=== PATIENT | female | born 1980 | race Two or more races ===

== ENCOUNTER 2024-06-27 15:05 | Outpatient (AMB) | payer OTHER, SELFPAY ==
--- NOTE | 2024-06-27 15:15 | A.OFFVIS_ITS ---
Vital Signs 06/27/24 15:27 Height 5 ft 5 in Weight 194 lb BMI 32.3 BP 120/70 Blood Pressure Location Lt brachial Position Sitting Pulse 71 Pulse Source Pulse Oximeter Pulse Oximetry (%) 99 Oxygen Delivery Method Room Air Intake Visit Reasons: Joint Pain Intake Note: Patient externally referred by PCP for joint pain. She states all over her body, and it's been going on for 2 years, past few months, been at it's worse. She states she takes 650 mgs of Tylenol arthritis which is not helping at all. Allergies amoxicillin [AMOXICILLIN] Allergy (Unknown, Unverified 06/27/24 15:20) HIVE ibuprofen [From MOTRIN] Adverse Reaction (Unknown, Unverified 06/27/24 15:20) VOMITING tramadol [TRAMADOL] Adverse Reaction (Unknown, Unverified 06/27/24 15:20) NAUSEA & VOMITING & PALPITATIONS Medication List - Last Reconciled 06/27/24 by Di Panchal MD acetaminophen ER 650 mg PO TID albuterol sulfate 90 mcg/actuation (Ventolin HFA) inhalation celecoxib mg PO clonidine HCl 0.1 mg PO TID diclofenac sodium 1% topical fluticasone propionate 110 mcg/actuation inhalation hydroxyzine HCl 25 mg PO TID lactulose 30 grams PO BID lisinopril 10 mg PO DAILY olanzapine 15 mg PO BEDTIME ondansetron HCl mg PO oxybutynin chloride ER 5 mg PO DAILY pantoprazole 20 mg PO BID polyethylene glycol 3350 17 grams PO DAILY triamcinolone acetonide sprays intranasal zafirlukast (Accolate) 20 mg PO BID HPI Comments Details: Patient externally referred by PCP for joint pain. She states all over her body, and it's been going on for 2 years, past few months, been at it's worse. She states she takes 650 mgs of Tylenol arthritis which is not helping at all. She was also referred to see a material flow analyst. She had spine x-rays which showed mild degenerative disc disease. She was referred to PT. She has done PT and she did not find it useful. 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 Female Reproductive History Menstrual Total pregnancies: 8 Number of Living Children: 6 Review of Systems Const Reports weakness ENT Reports neck pain Musc Reports back pain, Reports myalgias, Reports arthralgias and Reports neck pain Neuro Reports weakness Physical Exam Vital Signs: Last Vital Signs Pulse 71 06/27/24 15:27 BP 120/70 06/27/24 15:27 Pulse Ox 99 06/27/24 15:27 Oxygen Delivery Method Room Air 06/27/24 15:27 BMI result Body Mass Index 32.3 Const General: cooperative, healthy appearing and comfortable Nutritional Appearance: obese Orientation/consciousness: patient oriented x3 Limitations: no limitations HEENT Head: Yes normocephalic and Yes atraumatic Resp Effort & Inspection: normal respiratory effort and able to speak in complete sentences Skin General skin exam: no rashes or lesions noted Neuro General: patient oriented x3 Extrem Other: No active synovitis Normal nailfold capillaroscopy Multiple fibromyalgia tender points Results Reviewed Results Reviewed: JAZ screen negative Assessment & Plan Assessment & Plan (1) Fibromyalgia, primary: Code(s): M79.7 - Fibromyalgia Category: Medical Plan: This is a 44-year-old female presents for evaluation of diffuse pain. Upon evaluation I do not see any signs suggestive of an autoimmune rheumatic disease Discussed management of fibromyalgia with patient. Is a noninflammatory, non- autoimmune central afferent processing disorder leading to a diffuse pain syndrome. Patient follows up regularly with her psychiatrist and psychotherapist. Try to follow sleep hygiene practices. Discuss CBT for sleep with psychotherapist. Patient is scheduled for a sleep study. Advised patient to not missed that appointment. Patient would benefit from increased physical activity, either through formal physical therapy or by joining a gym. Advised patient that she should start activity slowly and increase as tolerated. Patient walks for 45 minutes daily. Consider low-impact exercises such as swimming, aqua therapy stretching, yoga. Follow-up with PCP Plan I spent 30 minutes reviewing patient's chart, evaluating patient, counseling patient and documenting in the chart Coding Level of Care Code New Pt Level 3 (93875) Diagnoses Fibromyalgia, primary M79.7
[2024-06-27 15:27] VITALS: BP 120/70; PULSE 71; O2SAT 99; BMI 32.3
== END 2024-06-27 15:52 | disposition home or self-care (01) ==
PROVIDERS: PCP Internal Medicine; Referring Provider Internal Medicine; Visit Provider Student in an Organized Health Care Education/Training Program
DX: M79.7 Fibromyalgia (principal)
CPT/HCPCS: 99203

== ENCOUNTER → 2024-06-27 15:05 | Outpatient (BNVA) | payer OTHER, SELFPAY | PROVIDERS: PCP Internal Medicine; Referring Provider Internal Medicine; Visit Provider Student in an Organized Health Care Education/Training Program | DX: M79.7 Fibromyalgia (principal) | CPT/HCPCS: 99202 ==

== ENCOUNTER 2025-07-01 15:38 | Outpatient (REF) | payer OTHER, SELFPAY ==
[2025-07-01 17:39] LABS: Hematocrit 31.9 % (37.0-47.0); Hemoglobin 10.0 g/dl (12.0-16.0); Mean Corpuscular HGB Conc 31.3 g/dl (31.0-35.0); Mean Corpuscular Hemoglobin 24.2 pg (27.0-33.0); Mean Corpuscular Volume 77.1 fL (80.0-98.0); NRBC Abs Auto 0.000 X10*3/uL (0.0-0.012); NRBC Pct Auto 0.0 /100WBC (0.0-0.2); Platelet Count 204 X10*3/uL (160-400); Red Blood Count 4.14 X10*6/uL (4.20-5.50); White Blood Count 4.1 X10*3/uL (4.8-10.8)
[2025-07-02 05:23] LABS: Follicle Stimulating Hormone 10.6 mIU/mL
== END 2025-07-01 15:39 | disposition home or self-care (01) ==
LOC: HO.LAB 15:38
PROVIDERS: PCP Internal Medicine; Visit Provider Obstetrics & Gynecology
DX: N93.9 Abnormal uterine and vaginal bleeding, unspecified (principal); Z20.2 Contact with and (suspected) exposure to infections with a predominantly sexual mode of transmission; Z32.00 Encounter for pregnancy test, result unknown; Z98.51 Tubal ligation status
CPT/HCPCS: 36415; 83001; 83002; 84443; 84702; 85027; 99202

== ENCOUNTER 2025-07-01 15:38 | Outpatient (AMB) | payer OTHER, SELFPAY ==
--- OUTSIDE RECORDS SUMMARY | 2024-07-22 08:16 | XMS_ITS | Encounter Summary ---
Author Organization [facility] Address [address] [place] [address] Care Team Providers Care Secretary Name Role Phone Yeni Daniel MD Primary Care Provider [phone] Encounter Details Date Type Department Care Team (Late Contact Info) Description 07/22/2024 8:16 AM EDT Hospital Encounter TH HISTORIC ENCOUNTERS [facility] ONLY Yeni Daniel MD [address] [place] [address] Gastro-esophageal reflux disease without esophagitis Social History [...] Department Care Team (Late Contact Info) Description 07/08/2025 1:30 PM EDT Ancillary Procedure [facility] - [address] [place] [address] 08/06/2025 1:00 PM EDT Office Visit Urogynecology - [place] [address] [place] [address] Roxy Colon MD [address] [place] [address] [address] [place] [address] 08/28/2025 4:00 PM EST Office Visit Adult Medicine [facility] [address] [place] [address] Carrie Badillo PA [address] [place], [place] 09/18/2025 9:00 AM EST Consult Vascular Surgery - [place] 300 [facility] 210 [place] [address] Negrita Boone PA 300 [facility] 210 [place] [address] 09/19/2025 9:40 AM EST Office Visit Gastroenterology [facility] [address] [facility] 200 [place] [phone] Merry Inman NP [address] [facility] 200 [place] [address] documented as of this encounter Goals Goal Patient Goal Type Associated Problems Recent Progress Patient-Stated? 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 COMPARISON: 2 view chest x-ray March 02, 2014 HISTORY: Patient is a 44-year-old female with history of dysphagia, globus sensation. Medical Technologist radiographs: 1 view chest radiograph demonstrates cardiac [...] Signed by: JEANETTE BERGER MD Dic Date/Time: 07/22/24848 Sign date/Time: 07/22/24917 Procedure Note Jeanette Berger MD - 08/06/2024 [facility] Diagnostic Imaging Department [address] [place] [address] Patient: NABEEL HASTINGS /Age/Sex: 1980 - 44 - F Unit#: [id number] Location/Status: [facility]/REG CLI Mnemonic/Ordering Site: [facility] Ordering Physician: YENI DANIEL MD CR Barium Swallow - 07/22/24 - Report Status:Signed FINDINGS: Double contrast esophagram performed. COMPARISON: 2 view chest x-ray March 02, 2014 HISTORY: Patient is a 44-year-old female with history of dysphagia,globus sensation. Medical Technologist radiographs: 1 view chest radiograph demonstrates cardiac [...] Signed by: JEANETTE BERGER MD Dic Date/Time: 07/22/24 0849 Sign date/Time: 07/22/24917 Yeni Daniel MD IMG XR PROCEDURES Final Res ult documented in this encounter Visit Diagnoses Diagnosis Gastro-esophageal reflux disease without esophagitis documented in this encounter Care Teams Secretary Relationship Specialty Start Date End Date Yeni Daniel MD 4 [facility] [place] [address] PCP - General 06/29/23 documented as of this encounter
--- NOTE | 2025-07-01 15:46 | A.OFFVIS_ITS ---
Vital Signs 07/01/25 15:51 Height 5 ft 5 in Weight 193 lb BMI 32.1 BP 120/82 Intake Visit Reasons: New patient/AUB Financial Services Technician Required: No Information Interpreted: non-clinical & clinical Wheel Cleaner: Wheel Cleaner Present (Katya MOORE) Accompanied by: Self / Same As Patient Allergies amoxicillin (AMOXICILLIN) Allergy (Unknown, Unverified 06/27/24 15:20) HIVE ibuprofen (From MOTRIN) Adverse Reaction (Unknown, Unverified 06/27/24 15:20) VOMITING tramadol (TRAMADOL) Adverse Reaction (Unknown, Unverified 06/27/24 15:20) NAUSEA & VOMITING & PALPITATIONS Is last menstrual period known: Yes Last menstrual period: 06/27/25 HPI Comments Details: The patient is presenting c/o irregular bleeding associated with passage of blood clots and abdominal cramping. it started few months ago and is getting worse no other associated symptoms. Last co testing Last mammogram PFSH Medical History Chronic back pain Narcotic abuse Panic attack Hidradenitis suppurativa Anxiety and depression Asthma Obesity Osteoarthritis of lumbar spine Surgical History Hx of tubal ligation Family History Mother Hypertension Breast cancer in female Father HIV (human immunodeficiency virus infection) Maternal Grandfather Liver cancer Social History Household Members: Spouse Housing: Apartment Alcohol intake: never Patient Tobacco Use Status: Current everyday Tobacco user Tobacco use type: Cigarette Cigarette Packs Per Day: 0.25 Cigarettes Per Day: 8 Years Smoked: 30 Current occupational status: unemployed 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 Sexually active: Yes Sexual orientation: Straight/Heterosexual Gender identity: Female Female Reproductive History Menstrual Date of last menstrual period: 06/27/25 control method: permanent sterilization Total pregnancies: 10 Full term: 6 Number of Living Children: 6 Ab induced: 2 Ab spontaneous: 2 Review of Systems Const All systems reviewed & are unremarkable except as noted in HPI and below Card Reports as per HPI Resp Reports as per HPI GI Reports as per HPI and Reports no additional complaints Reports as per HPI Physical Exam Vital Signs: BMI result Body Mass Index 32.1 Const General: cooperative, healthy appearing and comfortable Chest Chest palpation & inspection: normal inspection of the chest and normal palpation of entire chest wall Breast/axilla inspection: normal inspection of the breasts and normal inspection of the axillae Breast/axilla palpation: normal palpation of the breasts, normal palpation of the axillae and no axillary lymphadenopathy Resp Effort & Inspection: normal respiratory effort Auscultation: clear to auscultation bilaterally Percussion: percussion normal Cardio Palpation: normal PMI Rate: regular rate Rhythm: regular rhythm Heart sounds: no murmurs and no rubs Peripheral pulses: Peripheral pulses 2+ throughout GI Inspection: Yes normal to inspection Palpation (GI): Soft to palpation, nontender, no guarding, not rigid and No hepatosplenomegaly present Percussion: Yes normal to percussion Auscultation: normal bowel sounds Rectal Exam - Female: deferred General: Yes bladder normal to palpation External Female Exam: No lesion Speculum Exam - Vagina: normal appearance of the vagina, normal palpation, normal vaginal discharge and not erythematous Speculum Exam - Cervix: normal appearance of the cervix and normal palpation Bimanual exam- vagina & uterus: normal bimanual exam, normal palpation, uterine size normal, bladder normal to palpation, consistency normal and normal palpation Bimanual Exam- Adnexa, other: normal adnexae, no masses and no tenderness Assessment & Plan Assessment & Plan (1) Abnormal uterine bleeding (AUB): Code(s): N93.9 - Abnormal uterine and vaginal bleeding, unspecified Category: Medical Plan: Screening mammogram , Co testing done, GC and chlamydia taken CBC, TSH, HCG, and pelvic ultrasound ordered. Discussed with the patient the different causes of abnormal bleeding including thyroid disorders, uterine and ovarian pathology, endometrial hyperplasia, carcinoma and other potential causes. Discussed with the patient the work up including CBC (to r/o anemia), TSH, pelvic Ultrasound, endometrial biopsy to r/o endometrial pathology. All questions answered and the patient verbalized understanding. Instructed the patient to schedule an appointment for an endometrial biopsy in 2 weeks. Orders: Orders Complete Blood Count no Diff Today N93.9 - Abnormal uterine and vaginal bleeding, unspecified HCG Quantitative Today N93.9 - Abnormal uterine and vaginal bleeding, unspecified Follicle Stimulating Hormone Today N93.9 - Abnormal uterine and vaginal bleeding, unspecified MM screening mammo BI Today Z12.31 - Encounter for screening mammogram for malignant neoplasm of breast US pelvic and transvaginal Today N93.9 - Abnormal uterine and vaginal bleeding, unspecified TSH reflex Free T4 Today N93.9 - Abnormal uterine and vaginal bleeding, unspecified Lutenizing Hormone Today N93.9 - Abnormal uterine and vaginal bleeding, unspecified Coding Level of Care Code New Pt Level 3 (37866) Diagnoses Abnormal uterine bleeding (AUB) N93.9
[2025-07-01 15:51] VITALS: BP 120/82; BMI 32.1
--- OUTSIDE RECORDS SUMMARY | 2025-07-01 18:22 | XMS_ITS | Clinical Summary ---
Author Organization [facility] [address] [facility] Address [address] [place] [phone] Phone Care Team Providers Care Quick Service Technician Name Role Phone Tonya Tan MD Primary Care Provider Allergies Active Allergy Reactions Criticality Noted Date Comments Pollen Extracts 02/15/2017 Medications benztropine (COGENTIN) 0.5 mg tablet Take 1 tablet (0.5 mg total) by mouth. 09/28/20 21 Active bisacodyL (DULCOLAX) 5 mg EC tablet Take 2 tabs by mouth right before beginning bowel prep. Follow instructions given by office for timing. 06/25/20 24 Active cloNIDine (CATAPRES) 0.1 mg tablet Take 1 tablet (0.1 mg total) by mouth. 11/04/19 20 Active hydrOXYzine HCL (ATARAX) 25 mg tablet Take 1 tablet (25 mg total) by mouth 3 (three) times a day if needed. 04/03/20 24 Active hydrOXYzine pamoate (VISTARIL) 50 mg capsule Take 1 capsule (50 mg total) by mouth 2 (two) times a day. 02/14/20 24 Active camphor-methyl salicyl-menthoL (Salonpas) 3.1-10-6 % adhesive patch,medicated Apply 1 patch topically. 01/18/20 24 Active OLANZapine (ZyPREXA) 10 mg tablet Take 1 tablet (10 mg total) by mouth. 04/14/20 21 Active polyethylene glycol (GoLYTELY) 236-22.74-6.74 -5.86 gram solution Take 240 mL by mouth. 06/25/20 24 Active traZODone (DESYREL) 100 mg tablet 02/14/20 24 Active zafirlukast (Accolate) 20 mg tablet Take 1 tablet (20 mg total) by mouth. 02/13/20 21 Active pantoprazole (PROTONIX) 20 mg EC tablet TAKE 2 TABLETS BY MOUTH DAILY. 180 tablet 1 11/18/19 25 Active acetaminophen (TYLENOL 8 HOUR) 650 mg 8 hr tablet TAKE 1 TABLET BY MOUTH EVERY 8 HOURS NEEDED 270 tablet 1 12/04/19 25 Active oxyBUTYnin XL (DITROPAN-XL) 5 mg 24 hr tablet TAKE 1 TABLET BY MOUTH DAILY. 90 tablet 03/05/20 25 Active celecoxib (CeleBREX) 200 mg capsule Take 1 capsule (200 mg total) by mouth 2 (two) times a day if needed for moderate pain. 180 each 04/08/20 25 Active capsaicin (ZOSTRIX) 0.075 % creamIndication s:arthritic pain Apply thin layer to area of discomfort TID in thin layer NEEDED for 2 weeks. Wash hands after use, avoid contact with eyes. 42.5 g 1 04/08/20 25 Active albuterol 2.5 mg /3 mL (0.083 %) nebulizer solution Take 3 mL (2.5 mg total) by nebulization every 6 (six) hours if needed for wheezing or shortness of breath. 1080 mL 04/08/20 25 Active Ventolin HFA 90 mcg/actuation inhalerIndicati ons:Mild intermittent asthma without complication Inhale 2 puffs by mouth every 4 (four) hours if needed for wheezing or shortness of breath. 18 g 04/08/20 25 Active budesonide-form oteroL (Symbicort) 80-4.5 mcg/actuation inhaler Inhale 2 puffs by mouth 2 (two) times a day. Rinse mouth with water after use to reduce aftertaste and incidence of candidiasis. Do not swallow. 10.2 g 1 04/08/20 25 Active diclofenac (VOLTAREN) 75 mg EC tablet Take 1 tablet (75 mg total) by mouth 2 (two) times a day if needed (pain). Do not crush, chew, or split. 60 tablet 1 04/08/20 25 Active lidocaine (LIDODERM) 5 % patch Apply 1 patch topically 1 (one) time each day if needed for moderate pain. Apply to painful area 12 hours per day, remove for 12 hours. 30 each 5 04/08/20 25 Active lisinopriL (PRINIVIL,ZESTR IL) 10 mg tablet Take 1 tablet (10 mg total) by mouth 1 (one) time each day. 90 tablet 1 04/08/20 25 Active ondansetron (ZOFRAN) 4 mg tablet Take 1 tablet (4 mg total) by mouth every 8 (eight) hours if needed for nausea. 30 tablet 1 04/08/20 25 Active ferrous sulfate 325 mg (65 mg iron) EC tablet TAKE 1 TABLET BY MOUTH EVERY DAY WITH BREAKFAST 90 tablet 1 03/26/20 25 Active fluticasone propionate (FLONASE) 50 mcg/actuation nasal spray Administer 2 sprays into each nostril 1 (one) time each day. Shake gently. Before first use, prime pump. After use, clean tip and replace cap. 16 g 2 04/25/20 25 2025 Active sodium chloride (OCEAN) 0.65 % nasal spray Administer 1 spray into each nostril if needed for congestion. 15 mL 11 04/25/20 25 2025 Active loratadine (CLARITIN) 10 mg tablet Take 1 tablet (10 mg total) by mouth 1 (one) time each day if needed for allergies. 90 each 04/25/20 25 2024 Active lactulose (CHRONULAC) solution Take 30 mL (20 g total) by mouth 2 (two) times a day. 5400 mL 06/06/20 25 2024 Active lactulose (CHRONULAC) solution Take 30 mL (20 g total) by mouth 2 (two) times a day. 5400 mL 03/05/20 25 2024 Discontinued Active Problems Problem Noted Date Diagnosed Date Gastroesophageal reflux disease 04/25/2025 Bilateral leg edema 04/25/2025 Use of cane as ambulatory aid 12/10/2024 Chronic back pain 07/12/2024 Narcotic abuse (CMS/[facility] V24, CMS/HCC V28) 2023 Bilateral hip pain 03/31/2024 Primary hypertension 03/31/2024 Tremors of nervous system 03/31/2024 Osteoarthritis of lumbosacral spine 02/29/2024 Obesity 06/10/2020 Anxiety and depression 12/11/2019 Asthma 12/11/2019 Hidradenitis suppurativa 12/11/2019 Panic attacks 03/22/2017 Encounters Date Type Department Care Team Description 06/23/2025 Telephone Adult [address] [phone] Tonya Tan MD 05/29/2025 Telephone Adult Medicine [address] [phone] Osmin Guadarrama LPN 05/20/2025 [place] Adult [address] [phone] Tonya Tan MD 05/12/2025 [facility] Adult [address] [phone] Tonya Tan MD 04/30/2025 [place] Adult [address] [phone] Constance Tellez MA 04/25/2025 10:30 AM EDT Office Visit Adult [address] [phone] Tonya Tan MD Chronic back pain, unspecified back location, unspecified back pain laterality (Primary Dx); Mild intermittent asthma without complication; Gastroesophageal reflux disease, unspecified whether esophagitis present; Bilateral leg edema; Overactive bladder; Primary hypertension; Blood in stool 04/02/2025 1:15 PM EDT Office Visit Orthopedic Surgery [address] [phone] Bruce Yoo DPM Lumbosacral radiculopathy (Primary Dx); Contusion of left ankle, subsequent encounter; Posterior tibial tendinitis of left leg from Last 3 Months Immunizations Name Administration Dates Next Due Influenza Quadravalent, MDCK , 0.5ml, preservative free (Flucelvax) 6mo and older 06/19/2023 Influenza trivalent, 0.5mL, preservative free (Fluarix; FluLaval; Fluzone) ages 6mo and older (Afluria) 3 years and older 09/07/2020,06/28/2018,11/01/2012 Influenza trivalent, with pr eservative (Fluzone; Afluria) 6mo and older 11/22/2017 Tdap Tetanus diptheria acell ular pertussis (Boostrix; Adacel) 7yo and older 05/13/2022,12/23/2011 Surgical History Surgery Date Site/Laterality Comments COLONOSCOPY 04/18/2017 PROCEDURE: HISTORICAL COLONOSCOPY; COMMENT: incomplete, internal hemorrhoids TUBAL LIGATION PROCEDURE: HISTORICAL TUBAL LIGATION Medical History Medical History Date Comments Chronic back pain DX:Chronic rosana k pain Narcotic abuse ([facility] V24, CMS/[facility] V28) DX:Narcotic abuse ([facility]) Panic attacks 03/22/2017 DX:Panic attacks Family History Medical History Relation Name Comments Other: Other Father HIV Other: Other Maternal Grandfather liver c ancer Hypertension Mother breast cancer ( 32), HIV Relation Name Status Comments Father Maternal Grandfather Mother Social History Tobacco Use Types Packs/Day Years [...] Orientation Straight 01/25/2025 1: 09 PM EDT Obstetrics History Para Term AB IAB SAB Ectopic Multiple Livin g Live Births 6 Last Filed Vital Signs Vital Sign Reading Time Taken Comments Blood Pressure 122/80 04/25/2025 10:56 AM EDT Pulse 63 04/25/2025 10:56 AM EDT Temperature 36.6 C (97.9 F) 04/25/2025 10:56 AM EDT Respiratory Rate 16 03/20/2025 10:48 AM EDT Oxygen Saturation 98% 03/20/2025 10:48 AM EDT Inhaled Oxygen Concentration - - Weight 90.3 kg (199 lb) 04/25/2025 10:56 AM EDT Height 165.1 cm (5' 5 ) 04/25/2025 10:56 AM EDT Body Mass Index 33.12 04/25/2025 10:56 AM EDT Plan of Treatment Upcoming Encounters Date Type Department Care Team (Late st Contact Info) Description 07/08/2025 1:30 PM EDT Ancillary Procedure [facility] - [facility] [address] [facility] [address] [place] [address] 08/06/2025 1:00 PM EDT Office Visit Urogynecology - [address] [phone] Roxy Colon MD [address] [place] [phone] 08/28/2025 4:00 PM EST Office Visit Adult Medicine [place] - [address] [phone] Carrie Badillo PA [address] [place] [address] 09/18/2025 9:00 AM EST Consult Vascular Surgery - [place] [address] [facility] [address] [place] [phone] Negrita Boone PA [address] [facility] [address] [place] [address] 09/19/2025 9:40 AM EST Office Visit Gastroenterology - [place] 175 [facility] 175 [facility] [address] [place] [phone] Merry Inman NP [address] [facility] [address] [place] [address] Health Maintenance Due Date Last Done Comments Hepatitis A Vaccines (1 of 2 - Risk 2-dose series) 1999 Hepatitis B Vaccines (1 of 3 - 19+ 3-dose series) 1999 Pneumococcal Vaccine: Pediatrics (0 to 5 Years) and At-Risk Patients (6 to 49 Years) (1 of 2 - PCV) 1999 Cervical Cancer Screening: Pap Smear 2001 Colorectal Cancer Screening: Colonoscopy 09/17/2022 HIV Screening 09/17/2022 Hepatitis C Screening 09/17/2022 Social Influencers of Health Screening 09/17/2022 Depression Screening 10/09/2024 COVID-19 Vaccine ( - season) 2025 Influenza Vaccine (#1) 2025 , 06/19/2023, 09/07/2020, Additional history exists Hypertension/CHF/CAD Annual BMP Blood Test 10/22/2025 10/22/2024, 02/29/2024 Breast Cancer Screening 12/04/2026 12/04/2024 Cholesterol Screening (Lipid Panel) 05/18/2028 05/18/2023 DTaP,Tdap,and Td Vaccines (4 - Td or Tdap) 05/13/2032 05/13/2022, 12/23/2011, 07/15/2005 RSV Immunization Adult Patients (1 - 1-dose 75+ series) 2055 HIB Vaccines Aged Out No longer eligi ble based on patient's age to complete this topic HPV Vaccines Aged Out No longer eligi ble based on patient's age to complete this topic IPV Vaccines Aged Out No longer eligi ble based on patient's age to complete this topic MMR Vaccines Aged Out No longer eligi ble based on patient's age to complete this topic Meningococcal ACWY Vaccine Aged Out N o longer eligible based on patient's age to complete this topic Meningococcal B Vaccine Aged Out No l onger eligible based on patient's age to complete this topic RSV Immunization Patients Under 20 months Aged Out No longer eligible based on patient's age to complete this topic Varicella Vaccines Aged Out No longer eligible based on patient's age to complete this topic Goals Goal Patient Goal Type Associated Problems Recent Progress Patient-Stated? 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 Pt [...] Pt willl transfer supine to/from sit independent Procedures Procedure Name Priority Date/Time Associated Diagnosis Comments MG MAMMO DIGITAL SCREENING W DENNY BILAT Routine 12/04/2024 3:58 PM EST Encounter for screening mammogram for breast cancer BASIC METABOLIC PANEL Routine 10/22/2024 3:10 PM EST Primary hypertension from Last 3 Months or Most Recently Relevant to Health Maintenance Results * MG Mammo Digital Screening w Denny bilat (12/04/2024 3:58 PM EST) Anatomical Region Laterality Modality Breast Bilateral Mammography 12/04/2024 5:49 PM EST Impressions 12/04/2024 5:59 PM EST No mammographic evidence of malignancy. Heterogeneously dense tissue. The patient and provider should discuss the potential benefits of supplementary screening breast ultrasound. ASSESSMENT: BI-RADS 1: NEGATIVE RECOMMENDATION(S): 1: Routine screening mammogram BILATERAL in 1 year. Consider supplementary screening breast ultrasound. -------- FINAL REPORT -------- Dictated By: Matias Solano Dictated Date: 12/04/2024 17:49 ET Assigned Physician: Matias Solano Reviewed and Electronically Signed By: Matias Solano Signed Date: 12/04/2024 17:59 ET Workstation ID: [id number] Transcribed By: Self Edit Transcribed Date: 12/04/2024 17:49 ET Narrative 12/04/2024 5:59 PM EST EXAM: SCREENING MAMMOGRAPHY, BILATERAL HISTORY: SCREENING. No additional history. COMPARISON: Initial exam TECHNIQUE: Synthesized CC and MLO projections of each breast. Tomosynthesis of each breast in the CC and MLO projections. ADDITIONAL IMAGING: Craniocaudal view of the right breast exaggerated toward the axilla using Tomosynthesis. Computer-aided detection was employed with the [employer] Feint AI 3-D. TISSUE DENSITY: The breasts are heterogeneously dense, which may obscure small masses. (BI-RADS category C) FINDINGS: RIGHT BREAST: No suspicious mass. No suspicious calcification. No distortion. No additional suspicious right breast findings LEFT BREAST: No suspicious mass. No suspicious calcification. No distortion. No additional suspicious left breast findings Procedure Note Matias Solano MD - 12/04/2024 EXAM: SCREENING MAMMOGRAPHY, BILATERAL HISTORY: SCREENING. No additional history. COMPARISON: Initial exam TECHNIQUE: Synthesized CC and MLO projections of each breast.Tomosynthesis of each breast in the CC and MLO projections. ADDITIONAL IMAGING: Craniocaudal view of the right breast exaggeratedtoward the axilla using Tomosynthesis. Computer-aided detection was employed with the [employer] profound AI 3-D. TISSUE DENSITY: The breasts are heterogeneously dense, which may obscuresmall masses. (BI-RADS category C) FINDINGS: RIGHT BREAST: No suspicious mass. No suspicious calcification. No distortion. Noadditional suspicious right breast findings LEFT BREAST: No suspicious mass. No suspicious calcification. No distortion. Noadditional suspicious left breast findings IMPRESSION: No mammographic evidence of malignancy. Heterogeneously dense tissue. The patient and provider should discuss the potential benefits ofsupplementary screening breast ultrasound. ASSESSMENT: BI-RADS 1: NEGATIVE RECOMMENDATION(S): 1: Routine screening mammogram BILATERAL in 1 year. Consider supplementary screening breast ultrasound. -------- FINAL REPORT -------- Dictated By: Matias Solano Dictated Date: 12/04/2024 17:49 ET Assigned Physician: Matias Solano Reviewed and Electronically Signed By: Matias Solano Signed Date: 12/04/2024 17:59 ET Workstation ID: [id number] Transcribed By: Self Edit Transcribed Date: 12/04/2024 17:49 ET us Self Referral Sppl IMG BI PROCEDURES Final Resul t * Basic metabolic panel (10/22/2024 3:10 PM EST) Sodium 138 133 - 145 mmol/L LAB CHEMISTRY METHOD 10/22/2024 8:54 PM [facility] Potassium 3.6 3.5 - 5.5 mmol/L LAB CHEMISTRY METHOD 10/22/2024 8:54 PM [facility] Chloride 103 96 - 110 mmol/L LAB CHEMISTRY METHOD 10/22/2024 8:54 PM [facility] CO2 28 21 - 32 mmol/L LAB CHEMISTRY METHOD 10/22/2024 8:54 PM [facility] Anion Gap 7 3 - 11 LAB CHEMISTRY METHOD 10/22/2024 8:54 PM [facility] Glucose 92 70 - 100 mg/dL LAB CHEMISTRY METHOD 10/22/2024 8:54 PM [facility] BUN 11 5 - 25 mg/dL LAB CHEMISTRY METHOD 10/22/2024 8:54 PM [facility] Creatinine 0.57 0.50 - 1.10 mg/dL LAB CHEMISTRY METHOD 10/22/2024 8:54 PM [facility] eGFR 115 >=60 mL/min/1. 73m2 LAB CHEMISTRY METHOD 10/22/2024 8:54 PM [facility] Comment:Calculation based on the Chronic Kidney Disease Epidemiology Collaboration (CKD-EPI) equation refit without adjustment for race. BUN/Creatinine Ratio 19.3 LAB CHEMISTRY METHOD 10/22/2024 8:54 PM [facility] Calcium 8.9 8.5 - 10.5 mg/dL LAB CHEMISTRY METHOD 10/22/2024 8:54 PM [facility] Blood Venous blood specimen / Unknown Venipuncture / Unknown 10/22/2024 3:10 PM EST 10/22/2024 3:10 PM EST us Tonya Tan MD LAB BLOOD ORDERABLES Final Result [facility] [address] [place] [address], from Last 3 Months or Most Recently Relevant to Health Maintenance Insurance [facility] Care Teams Quick Service Technician Relationship Specialty Start Date End Date Tonya Tan MD [address] [place] [address] PCP - General 06/29/23
--- OUTSIDE RECORDS SUMMARY | 2025-07-01 18:22 | XMS_ITS | Encounter Summary ---
Author Organization [facility] Address [address] [place] [address] Care Team Providers Care Disulfurizer Tender Name Role Phone Tonya Tan MD Primary Care Provider [phone] Reason for Visit * Reason Onset Date Comments vna 06/23/2025 Encounter Details Date Type Department Care Team (Late st Contact Info) Description 06/23/2025 Telephone Adult Medicine [facility] [address] [place] [address] Tonya Tan MD 444 [place] [address] Social History Tobacco Use Types Packs/Day Years [...] PM EDT documented as of this encounter Progress Notes * Delmy Raymundo - 06/23/2025 3:18 PM EDT VNA CALL Which VNA office is calling? [facility] Full name of caller: Kristal The caller is A nurse Is the caller at the patients home?: no Reason for call: Patient wants to see her Ortho provider and call was transferred but the patient missed some of her visits with VNA. Please call when available. Does caller need an urgent call back? no Was CONTACT Telephone # obtained above?: yes Fax #: documented in this encounter Plan of Treatment Upcoming Encounters Date Type Department Care Team (Late st Contact Info) Description 07/08/2025 1:30 PM EDT Ancillary Procedure [facility] - [facility] 101 300 [facility] 101 [place] [address] 08/06/2025 1:00 PM EDT Office Visit Urogynecology - [address] [phone] Roxy Colon MD [address] [place] [address] 08/28/2025 4:00 PM EST Office Visit [place] Medicine [place] - [address] [phone] Carrie Badillo PA [address] [place] [address] 09/18/2025 9:00 AM EST Consult Vascular Surgery - [place] 300 [facility] 210 [place] [address] Negrita Boone PA 300 [facility] 210 [place] [address] 09/19/2025 9:40 AM EST Office Visit Gastroenterology - [place] 175 [facility] 175 [facility] 200 [place] [phone] Merry Inman NP 175 [facility] 200 [place] [address] documented as of this encounter Goals Goal Patient Goal Type Associated Problems Recent Progress Patient-Stated? 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
--- OUTSIDE RECORDS SUMMARY | 2025-07-01 18:22 | XMS_ITS | Encounter Summary ---
Author Organization [facility] Address [address] [place] [address] Care Team Providers Care Long Haul Truck Driver Name Role Phone Tonya Tan MD Primary Care Provider Reason for Visit * Reason Onset Date Comments VNA CALL 09/10/2024 Encounter Details Date Type Department Care Team (Late st Contact Info) Description 09/10/2024 Telephone Adult Medicine [facility] [address] [place] [phone] Tonya Tan MD 444 [place] [address] Social History Tobacco Use Types Packs/Day Years Used Date Smoking Tobacco: Every Day Cigarettes 0.3 28.3 Started: 1997 Smokeless Tobacco: Never Alcohol Use Standard Drinks/Week Comments No 0 (1 standard drink = 0.6 oz pur e alcohol) Comments Unknown Sex and Gender Information Value Date Recorded Sex Assigned at Female 01/25/2025 1:09 PM EDT Legal Sex Female 7:33 PM EST Gender Identity Female 01/25/2025 1:09 PM EDT Sexual Orientation Straight 01/25/2025 1: 09 PM EDT documented as of this encounter Progress Notes * Edith العلي RN - 09/10/2024 1:27 PM EST Called and spoke with pt. Pt c/o for the past 4-5 days having episodes of chest tightness blurred vision dizziness no headaches advised with elevated bp and sx would advised to go to er for evaluation,. * Anika Verma - 09/10/2024 1:11 PM EST VNA CALL Which VNA office is calling? [facility] Full name of caller: sree The caller is intake Is the caller at the patients home?: no Reason for call: Pt was seen by nurse today had a elevated bp. Left arm 175/75 right 186/89. Pt wasadvised by nurse to go to ER but refused Does caller need an urgent call back? no Was CONTACT Telephone # obtained above?: yes Fax #: documented in this encounter Plan of Treatment Upcoming Encounters Date Type Department Care Team (Late st Contact Info) Description 07/08/2025 1:30 PM EDT Ancillary Procedure [facility] - [facility] 101 300 [facility] 101 [place] [address] 08/06/2025 1:00 PM EDT Office Visit Urogynecology - [address] [phone] Roxy Colon MD [address] [place] [address] 08/28/2025 4:00 PM EST Office Visit Adult Medicine [place] - [address] [phone] Carrie Badillo PA [address] [place] [address] 09/18/2025 9:00 AM EST Consult Vascular Surgery - [place] 300 [facility] [address] [place] [phone] Negrita Boone PA 300 [facility] [address] [place] [address] 09/19/2025 9:40 AM EST Office Visit Gastroenterology - [place] 175 [facility] 175 [facility] [address] [place] [phone] Merry Inman NP 175 [facility] 200 [place] [address] documented as of this encounter Visit Diagnoses Not on filedocumented in this encounter Care Teams Long Haul Truck Driver Relationship Specialty Start Date End Date Tonya Tan MD [address] [place] [address] PCP - General 06/29/23 documented as of this encounter
--- OUTSIDE RECORDS SUMMARY | 2025-07-01 18:22 | XMS_ITS | Encounter Summary ---
Author Organization [facility] Address [address] [place] [address] Care Team Providers Care Messenger Floorperson Name Role Phone Tonya Tan MD Primary Care Provider Reason for Visit * Reason Onset Date Comments Neck Pain 09/19/2024 Back Pain 09/19/2024 Abstract 09/19/2024 2 Encounter Details Date Type Department Care Team (Late st Contact Info) Description 09/19/2024 Nurse Triage Adult Medicine [address] [address] Tonya Tan MD 4 [place] [address] Social History Tobacco Use Types Packs/Day Years [...] as of this encounter Progress Notes * Josette Morales RN - 09/20/2024 2:28 PM EST Reason for Disposition ??? Weakness of an arm or hand Answer Assessment - Initial Assessment Questions 1. ONSET: When did the pain begin? July, now much worse 2. LOCATION: Where does it hurt? Neck into her arm 3. PATTERN Does the pain come and go, or has it been constant since it started? Constant 4. SEVERITY: How bad is the pain? (Scale 1-10; or mild, moderate, severe) - NO PAIN (0): no pain or only slight stiffness - MILD (1-3): doesn't interfere with normal activities - MODERATE (4-7): interferes with normal activities or awakens from sleep - SEVERE (8-10): excruciating pain, unable to do any normal activities Severe 5. RADIATION: Does the pain go anywhere else, shoot into your arms? To her arm 6. CORD SYMPTOMS: Any weakness or numbness of the arms or legs? Yes weakness in hands, numbness in legs and loss of bladder control 7. CAUSE: What do you think is causing the neck pain? Fall 8. NECK OVERUSE: Any recent activities that involved turning or twisting the neck? no 9. OTHER SYMPTOMS: Do you have any other symptoms? (e.g., headache, fever, chest pain, difficultybreathing, neck swelling) Pt denies any chest or jaw pain, has not been ill, denies any N/V/D or fever, has not had any sore throat or rash, denies any weakness or numbness, has had difficulty with bladder control , has had headache has had blurred vision , she has increased pain when she turns her head from side to side , denies torticollis, no swelling 10. : Is there any chance you are ? When was your last menstrual period? Protocols used: Neck Pain or [id number] * Mila Metcalf - 09/20/2024 1:53 PM EST Pt called back today stating she has not been given a call back yet. Even though there is a duplicate message. Pt is requesing an urgent call back from triage. At phone [phone] thank you * Josette Morales RN - 09/19/2024 1:17 PM EST Duplicate message * Mila Tea - 09/19/2024 1:10 PM EST Patient call requires triage: Symptoms patient is presenting: neck and back pain right elbow pain How long has patient had these symptoms?: 2 months For ALL patients calling to schedule any appointment (routine, sick visit, follow up, consult, etc.) in the outpatient setting please ask the following questions: Do you have fever of higher than 101, sore throat with difficulty swallowing or severe shortness ofbreath? no If YES to any of these above symptoms, send a message to triage and do not book. Red dot. If no, an audio or video visit should be booked. Have you had close contact with someone with Coronavirus in the last 14 days? no Have you traveled abroad? no Have you traveled recently to another state outside of [place], [place], [place], [place], [place], [place], [place]? no o If yes, did you quarantine for 14 days or have a negative covid test? no If yes to any of the above, patient is not to be scheduled in office until after 14 day quarantine or negative covid test. If pain or injury related was it due to an accident at work or from a motor vehicle accident? If yes, date of accident/Injury: No If yes, gather 3rd libertarian insurance information Third Green Party Information: not applicable PCP: Tonya Tan MD Payor: / No coverage found. documented in this encounter Plan of Treatment Upcoming Encounters Date Type Department Care Team (Late st Contact Info) Description 07/08/2025 1:30 PM EDT Ancillary Procedure [facility] - [address] [place] [address] [place] [address] 08/06/2025 1:00 PM EDT Office Visit Urogynecology - [place] 444 [place] [address] Roxy Colon MD 580 [facility] [address] [place] [address] 08/28/2025 4:00 PM EST Office Visit Adult Medicine [facility] 444 [place], [place] [phone] Carrie Badillo PA 444 [place], [place] 09/18/2025 9:00 AM EST Consult Vascular Surgery - [place] 300 [facility] 210 [place] [address] Negrita Boone PA 300 [facility] 210 [place] [address] 09/19/2025 9:40 AM EST Office Visit Gastroenterology - [place] [address] [place] 175 [facility] 200 [place] [phone] Merry Inman NP 175 [facility] 200 [place] [address] documented as of this encounter Visit Diagnoses Not on filedocumented in this encounter Care Teams Messenger Floorperson Relationship Specialty Start Date End Date Tonya Tan MD 4 [place], [place] PCP - General 06/29/23 documented as of this encounter
== END 2025-07-01 16:24 | disposition home or self-care (01) ==
LOC: HO.HWS 15:38
PROVIDERS: PCP Internal Medicine; Visit Provider Obstetrics & Gynecology
DX: N93.9 Abnormal uterine and vaginal bleeding, unspecified (principal)
CPT/HCPCS: 99203

== ENCOUNTER 2025-07-01 16:22 | Outpatient (REF) | payer OTHER, SELFPAY ==
[2025-07-02 02:57] LABS: CT PCR NOT DETECTED (Not Detect.); NG PCR NOT DETECTED (Not Detect.)
== END 2025-07-01 16:23 | disposition home or self-care (01) ==
LOC: HO.LNP 16:22
PROVIDERS: Visit Provider Obstetrics & Gynecology
DX: Z11.3 Encounter for screening for infections with a predominantly sexual mode of transmission (principal); N93.9 Abnormal uterine and vaginal bleeding, unspecified; Z11.8 Encounter for screening for other infectious and parasitic diseases; Z11.51 Encounter for screening for human papillomavirus (HPV)
CPT/HCPCS: 87491; 87591; 87626; 88175

== ENCOUNTER 2025-07-10 13:43 | Outpatient (REF) | payer OTHER, SELFPAY | END 2025-07-10 13:44 | disposition home or self-care (01) | LOC: HO.LNP 13:43 | PROVIDERS: PCP Internal Medicine; Visit Provider Obstetrics & Gynecology | DX: R87.618 Other abnormal cytological findings on specimens from cervix uteri (principal); R87.615 Unsatisfactory cytologic smear of cervix; N93.9 Abnormal uterine and vaginal bleeding, unspecified | CPT/HCPCS: 58100; 81025; 88175; 88305 ==

== ENCOUNTER 2025-07-10 13:43 | Outpatient (AMB) | payer OTHER, SELFPAY ==
--- OUTSIDE RECORDS SUMMARY | 2024-07-22 08:16 | XMS_ITS | Encounter Summary ---
Author Organization [facility] Address [address] [place] [address] Care Team Providers Care Computer Graphics Illustrator Name Role Phone Yeni Daniel MD Primary Care Provider Encounter Details Date Type Department Care Team (Late Contact Info) Description 07/22/2024 8:16 AM EDT Hospital Encounter TH HISTORIC ENCOUNTERS [facility]AST[facility] CONVERSION ONLY Yeni Daniel MD [address] [place] [address] Gastro-esophageal reflux disease without esophagitis Social History Tobacco Use Types Packs/Day Years Used Date Smoking Tobacco: Every Day Cigarettes 0.3 28.3 Started: 1997 Smokeless Tobacco: Never Alcohol Use [...] Department Care Team (Late Contact Info) Description 08/06/2025 1:00 PM EDT Office Visit Urogynecology - [place] [address] [place] [phone] Roxy Colon MD [address] [place] [address] 08/28/2025 4:00 PM EST Office Visit Adult Medicine [facility] [address] [place], [place] [phone] Carrie Badillo PA 444 [place], [place] 09/18/2025 9:00 AM EST Consult Vascular Surgery - [place] 300 [facility] 210 [place] [phone] Negrita Boone PA 300 [facility] 210 [place] [address] 09/19/2025 9:40 AM EST Office Visit Gastroenterology - [place] 175 [facility] [address] [phone] Merry Inman, [place] 175 [facility] 200 [place] [address] documented as of this encounter Goals Goal Patient Goal Type Associated Problems Recent Progress Patient-Stated? 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 steam plant control room operator x30 minutes without back pain Pt will be independent with all ADLs Pt will be independent with HEP PT STGs General Demarcus Hair, PT Note: Pt will present with lumbar [...] AM EDT Narrative 07/22/2024 9:18 AM EDT [facility] Diagnostic Imaging Department [address] [place] [address] Patient: SAMIRNABEEL /Age/Sex: 1980 - 44 - F Unit#: [id number] Location/Status: SPDIGEN/REG CLI Mnemonic/Ordering Site: [facility] Ordering Physician: YENI DANIEL MD CR Barium Swallow - 07/22/24 - Report Status:Signed FINDINGS: Double contrast esophagram performed. COMPARISON: 2 view chest x-ray March 02, 2014 HISTORY: Patient is a 44-year-old female with history of dysphagia, globus sensation. Canal Tender radiographs: 1 view chest radiograph demonstrates cardiac [...] Procedure Note Jeanette Berger MD - 08/06/2024 [facility] Diagnostic Imaging Department [address] [place] [address] Patient: NABEEL HASTINGS /Age/Sex: 1980 - 44 - F Unit#: [id number] Location/Status: [facility]/REG CLI Mnemonic/Ordering Site: [facility] Ordering Physician: YENI DANIEL MD CR Barium Swallow - 07/22/24 - Report Status:Signed FINDINGS: Double contrast esophagram performed. COMPARISON: 2 view chest x-ray March 02, 2014 HISTORY: Patient is a 44-year-old female with history of dysphagia,globus sensation. Canal Tender radiographs: 1 view chest radiograph demonstrates cardiac [...] esophagitis documented in this encounter Care Teams Computer Graphics Illustrator Relationship Specialty Start Date End Date Yeni Daniel MD [address] [place] [address] GABRIEL Guan [address] PCP - General 06/29/23 documented as of this encounter
--- NOTE | 2025-07-10 13:45 | MHC.OFFVIS ---
Vital Signs 07/10/25 13:50 Height 5 ft 5 in Weight 193 lb BMI 32.1 BP 124/76 Blood Pressure Location Lt brachial Position Sitting Intake Visit Reasons: Repeat pap/EMB Intake Note: here for repeat pap and emb Information Interpreted: non-clinical & clinical Receiver Setter: Receiver Setter Present (Daniela) Accompanied by: Self / Same As Patient Allergies amoxicillin (AMOXICILLIN) Allergy (Unknown, Unverified 07/10/25 13:52) HIVE ibuprofen (From MOTRIN) Adverse Reaction (Unknown, Unverified 07/10/25 13:52) VOMITING tramadol (TRAMADOL) Adverse Reaction (Unknown, Unverified 07/10/25 13:52) NAUSEA & VOMITING & PALPITATIONS Medication List - Last Reconciled 07/10/25 by María Elena Stanton LPN acetaminophen ER 650 mg PO TID albuterol sulfate 90 mcg/actuation (Ventolin HFA) inhalation celecoxib mg PO clonidine HCl 0.1 mg PO TID diclofenac sodium 1% topical ferrous sulfate 325 mg PO BID 90 days fluticasone propionate 110 mcg/actuation inhalation hydroxyzine HCl 25 mg PO TID lactulose 30 grams PO BID lisinopril 10 mg PO DAILY olanzapine 15 mg PO BEDTIME ondansetron HCl mg PO oxybutynin chloride ER 5 mg PO DAILY pantoprazole 20 mg PO BID polyethylene glycol 3350 17 grams PO DAILY triamcinolone acetonide sprays intranasal zafirlukast (Accolate) 20 mg PO BID HPI Comments Details: Presenting for follow-up. Pap smear unsatisfactory, HPV negative, endometrial cells present [facility] Medical History Chronic back pain Narcotic abuse Panic attack Hidradenitis suppurativa Anxiety and depression Asthma Obesity Osteoarthritis of lumbar spine Surgical History Hx of tubal ligation Family History Mother Hypertension Breast cancer in female Father HIV (human immunodeficiency virus infection) Maternal Grandfather Liver cancer Social History Household Members: Spouse Housing: Apartment Alcohol intake: never Patient Tobacco Use Status: Current everyday Tobacco user Tobacco use type: Cigarette Cigarette Packs Per Day: 0.25 Cigarettes Per Day: 8 Years Smoked: 30 Current occupational status: unemployed 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 hysteroscopy D&C) & the risks were discussed with the patient including but not limited: pain, uterine perforation, bleeding, infection, possible injury to bladder, bowel, ureter, possible need for blood transfusion with all its possible risks. The patient verbalized understanding all questions answered and signed consent. Urine test done in the office was negative The patient was placed into the dorsal lithotomy position; a speculum was inserted in the vagina. Using aseptic technique for the procedure, the cervix was cleansed with Betadine. The anterior lip of the cervix was grasped with a single tooth tenaculum. The uterus was sounded to 7 cm with a 4 mm Pipelle was used. Tissues samples were obtained and placed in formalin, in a patient labeled container and sent to the pathology department. At the end of the procedure, there was minimal bleeding noted The patient tolerated the procedure well and was discharged in good condition with the following instructions: Nothing in the vagina until the bleeding stops. No sex until the bleeding stops, to call if any of the following occurs: fever (>100.4), flu-like symptoms, abdominal pain, heavy bleeding, four smelling vaginal discharge. The patient was instructed to schedule a Follow up appointment in 2 weeks to discuss pathology results of the biopsy and treatment options. This note was generated with a voice recognition program. Some errors may have been overlooked during the review of this note. Sometimes these errors may affect the content or meaning of a given sentence. [id number] Biopsy Assessment & Plan Assessment & Plan (1) Unsatisfactory cervical Papanicolaou smear: Code(s): R87.615 - Unsatisfactory cytologic smear of cervix Category: Medical Plan: Pap taken (2) Unexplained endometrial cells on cervical Pap smear: Code(s): R87.618 - Other abnormal cytological findings on specimens from cervix uteri Category: Medical Plan: EMB done, see procedure note Orders: Orders AMB Endometrial Biopsy Today N93.9 - Abnormal uterine and vaginal bleeding, unspecified, R87.618 - Other abnormal cytological findings on specimens from cervix uteri Coding Level of Care Code Procedure Only Diagnoses Unsatisfactory cervical Papanicolaou smear R87.615 Unexplained endometrial cells on cervical Pap smear R87.618 CPT Codes Endometrial Biopsy - CPT: 59601-Septtworsha Biopsy ([id number])
[2025-07-10 13:50] VITALS: BP 124/76; BMI 32.1
--- OUTSIDE RECORDS SUMMARY | 2025-07-10 15:21 | XMS_ITS | Encounter Summary ---
Author Organization [facility] Address [address] [place] [address] Care Team Providers Care Qc Manager Name Role Phone Tonya Tan MD Primary Care Provider Reason for Visit * Reason Onset Date Comments vna 06/23/2025 Encounter Details Date Type Department Care Team (Late st Contact Info) Description 06/23/2025 Telephone Adult Medicine [facility] [address] [place] [address] Tonya Tan MD [address] [place] [address] Social History Tobacco Use Types Packs/Day Years [...] Care Team (Late st Contact Info) Description 08/06/2025 1:00 PM EDT Office Visit Urogynecology [address] [phone] Roxy Colon MD [address] [place] [address] 08/28/2025 4:00 PM EST Office Visit Adult Medicine [facility] [address] [place] [address] Carrie Badillo PA 444 [place], [place] 09/18/2025 9:00 AM EST Consult Vascular Surgery - [place] 300 [facility] 210 [place] [address] Negrita Boone PA [address] [facility] 210 [place] [address] 09/19/2025 9:40 AM EST Office Visit Gastroenterology - [place] [address] [facility] 175 [facility] 200 [place] [phone] Merry Inman NP 175 [facility] 200 [place] [address] documented as of this encounter Goals Goal Patient Goal Type Associated Problems Recent Progress Patient-Stated? Author PT LTGs General No Demarcus Lang PT Note: Pt will increase lumbar AROM to WNL Pt willl report no lumbar pain with arom testing Pt will complete light adoption coordinator x30 minutes without back pain Pt will be independent with all ADLs Pt will be independent with HEP PT STGs General No Demarcus Lang PT Note: Pt will present with lumbar extension to 0 with static standing Pt will increase lumbar AROM flexion to 3 inches Pt will report no radicular pain or numbness of RLE Pt willl transfer supine to/from sit independent documented as of this encounter Visit Diagnoses Not on filedocumented in this encounter Care Teams Qc Manager Relationship Specialty Start Date End Date Tonya Tan MD [address] [place] [address] PCP - General 06/29/23 documented as of this encounter
--- OUTSIDE RECORDS SUMMARY | 2025-07-10 15:21 | XMS_ITS | Clinical Summary ---
Author Organization [facility] [address] [place] [address] [place] [phone] Phone Care Team Providers Care Batch Room Technician Name Role Phone Tonya Tan MD Primary Care Provider Allergies Active Allergy Reactions Criticality Noted Date Comments Pollen Extracts 02/15/2017 Medications benztropine (COGENTIN) 0.5 mg tablet Take 1 tablet (0.5 mg total) by mouth. 1 Active bisacodyL (DULCOLAX) 5 mg EC tablet Take 2 tabs by mouth right before beginning bowel prep. Follow instructions given by office for timing. 4 Active cloNIDine (CATAPRES) 0.1 mg tablet Take 1 tablet (0.1 mg total) by mouth. 0 Active hydrOXYzine HCL (ATARAX) 25 mg tablet Take 1 tablet (25 mg total) by mouth 3 (three) times a day if needed. 4 Active hydrOXYzine pamoate (VISTARIL) 50 mg capsule Take 1 capsule (50 mg total) by mouth 2 (two) times a day. 4 Active camphor-methyl salicyl-menthoL (Salonpas) 3.1-10-6 % adhesive patch,medicated Apply 1 patch topically. 4 Active OLANZapine (ZyPREXA) 10 mg tablet Take 1 tablet (10 mg total) by mouth. 1 Active polyethylene glycol (GoLYTELY) 236-22.74-6.74 -5.86 gram solution Take 240 mL by mouth. 4 Active traZODone (DESYREL) 100 mg tablet 4 Active zafirlukast (Accolate) 20 mg tablet Take 1 tablet (20 mg total) by mouth. 1 Active pantoprazole (PROTONIX) 20 mg EC tablet TAKE 2 TABLETS BY MOUTH DAILY. 180 tablet 1 5 Active acetaminophen (TYLENOL 8 HOUR) 650 mg 8 hr tablet TAKE 1 TABLET BY MOUTH EVERY 8 HOURS NEEDED 270 tablet 1 5 Active oxyBUTYnin XL (DITROPAN-XL) 5 mg 24 hr tablet TAKE 1 TABLET BY MOUTH DAILY. 90 tablet 5 Active celecoxib (CeleBREX) 200 mg capsule Take 1 capsule (200 mg total) by mouth 2 (two) times a day if needed for moderate pain. 180 each 5 Active capsaicin (ZOSTRIX) 0.075 % creamIndications :arthritic pain Apply thin layer to area of discomfort TID in thin layer NEEDED for 2 weeks. Wash hands after use, avoid contact with eyes. 42.5 g 1 5 Active albuterol 2.5 mg /3 mL (0.083 %) nebulizer solution Take 3 mL (2.5 mg total) by nebulization every 6 (six) hours if needed for wheezing or shortness of breath. 1080 mL 5 Active Ventolin HFA 90 mcg/actuation inhalerIndicatio ns:Mild intermittent asthma without complication Inhale 2 puffs by mouth every 4 (four) hours if needed for wheezing or shortness of breath. 18 g 5 Active budesonide-formo teroL (Symbicort) 80-4.5 mcg/actuation inhaler Inhale 2 puffs by mouth 2 (two) times a day. Rinse mouth with water after use to reduce aftertaste and incidence of candidiasis. Do not swallow. 10.2 g 1 5 Active diclofenac (VOLTAREN) 75 mg EC tablet Take 1 tablet (75 mg total) by mouth 2 (two) times a day if needed (pain). Do not crush, chew, or split. 60 tablet 1 5 Active lidocaine (LIDODERM) 5 % patch Apply 1 patch topically 1 (one) time each day if needed for moderate pain. Apply to painful area 12 hours per day, remove for 12 hours. 30 each 5 5 Active lisinopriL (PRINIVIL,ZESTRI L) 10 mg tablet Take 1 tablet (10 mg total) by mouth 1 (one) time each day. 90 tablet 1 5 Active ondansetron (ZOFRAN) 4 mg tablet Take 1 tablet (4 mg total) by mouth every 8 (eight) hours if needed for nausea. 30 tablet 1 5 Active ferrous sulfate 325 mg (65 mg iron) EC tablet TAKE 1 TABLET BY MOUTH EVERY DAY WITH BREAKFAST 90 tablet 1 5 Active fluticasone propionate (FLONASE) 50 mcg/actuation nasal spray Administer 2 sprays into each nostril 1 (one) time each day. Shake gently. Before first use, prime pump. After use, clean tip and replace cap. 16 g 2 5 026 Active sodium chloride (OCEAN) 0.65 % nasal spray Administer 1 spray into each nostril if needed for congestion. 15 mL 11 5 026 Active loratadine (CLARITIN) 10 mg tablet Take 1 tablet (10 mg total) by mouth 1 (one) time each day if needed for allergies. 90 each 5 025 Active lactulose (CHRONULAC) solution Take 30 mL (20 g total) by mouth 2 (two) times a day. 5400 mL 5 025 Active Active Problems Problem Noted Date Diagnosed Date Gastroesophageal reflux disease 04/25/2025 Bilateral leg edema 04/25/2025 Use of cane as ambulatory aid 12/10/2024 Chronic back pain 07/12/2024 Narcotic abuse ([facility] V24, [facility] V28) 2023 Bilateral hip pain 03/31/2024 Primary hypertension 03/31/2024 Tremors of nervous system 03/31/2024 Osteoarthritis of lumbosacral spine 02/29/2024 Obesity 06/10/2020 Anxiety and depression 12/11/2019 Asthma 12/11/2019 Hidradenitis suppurativa 12/11/2019 Panic attacks 03/22/2017 Encounters Date Type Department Care Team Description 06/23/2025 Telephone Adult [address] [phone] Tonya Tan MD 05/29/2025 Telephone Adult [address] [phone] Osmin Guadarrama LPN 05/20/2025 Telephone Adult [address] [phone] Tonya Tan MD 05/12/[address] [phone] Tonya Tan MD 04/30/2025 [place] Adult [address] [phone] Constance Tellez [place] 04/25/2025 10:30 AM EDT Office Visit Adult [address] [phone] Tonya Tan MD Chronic back pain, unspecified back location, unspecified back pain laterality (Primary Dx); Mild intermittent asthma without complication; Gastroesophageal reflux disease, unspecified whether esophagitis present; Bilateral leg edema; Overactive bladder; Primary hypertension; Blood in stool from Last 3 Months Immunizations Immunization Administration Dates Next Due Influenza Quadravalent, MDCK [...] pain DX:Chronic rosana k pain Narcotic abuse (CMS/HCC V24, CMS/HCC V28) DX:Narcotic abuse (HCC) Panic attacks 03/22/2017 DX:Panic attacks Family History [...] 1:00 PM EDT Office Visit Urogynecology - [place] [address] [place] [address] Roxy Colon MD [address] [place] [address] 205 [place] [address] 08/28/2025 4:00 PM EST Office Visit Adult Medicine [address] [phone] Carrie Badillo PA 444 [place], [place] 09/18/2025 9:00 AM EST Consult Vascular Surgery - [place] 300 [facility] 210 [place] [address] Negrita Boone PA 300 [facility] 210 [place] [address] 09/19/2025 9:40 AM EST Office Visit Gastroenterology [facility] [address] [facility] 200 [place] [phone] Merry Inman NP 175 [facility] 200 [place] [address] Health Maintenance Due Date Last Done Comments Colorectal Cancer Screening: Colonoscopy 1980 Hepatitis A Vaccines (1 of 2 - Risk 2-dose series) 1999 Hepatitis B Vaccines (1 of 3 - 19+ 3-dose series) 1999 Pneumococcal Vaccine: Pediatrics (0 to 5 Years) and At-Risk Patients (6 to 49 Years) (1 of 2 - PCV) 1999 Cervical Cancer Screening: Pap Smear 2001 HPV Vaccines (1 - 3-dose SCDM series) 2007 HIV Screening 09/17/2022 Hepatitis C Screening 09/17/2022 Social Influencers of Health Screening 09/17/2022 Depression Screening 10/09/2024 COVID-19 Vaccine ( season) 2025 Influenza Vaccine (#1) 2025 5, 06/19/2023, 09/07/2020, Additional history exists Hypertension/CHF/CAD Annual [...] with arom testing Pt will complete light chairman x30 minutes without back pain Pt will [...] Diagnosis Comments MG MAMMO DIGITAL SCREENING W MALIA BILAT Routine 12/04/2024 3:58 PM EST Encounter for screening mammogram for breast cancer BASIC METABOLIC PANEL Routine 10/22/2024 3:10 PM EST Primary hypertension from Last 3 Months or Most Recently Relevant to Health Maintenance Results * MG Mammo Digital Screening w Malia bilat (12/04/2024 3:58 PM EST) Anatomical Region [...] Signed Date: 12/04/2024 17:59 ET Workstation ID: [id number] Transcribed By: Self Edit Transcribed Date: 12/04/2024 [...] Tomosynthesis. Computer-aided detection was employed with the [employer] AI 3-D. TISSUE DENSITY: The breasts are [...] Tomosynthesis. Computer-aided detection was employed with the [employer] biopharmaD Drizly AI 3-D. TISSUE DENSITY: The breasts are [...] Signed Date: 12/04/2024 17:59 ET Workstation ID: [id number] Transcribed By: Self Edit Transcribed Date: 12/04/2024 17:49 ET us Self Referral Sppl IMG BI PROCEDURES Final Resul t * Basic metabolic panel (10/22/2024 3:10 PM EST) Sodium 138 133 - 145 mmol/L LAB CHEMISTRY METHOD 10/22/2024 8:54 PM [facility] Potassium 3.6 3.5 - 5.5 mmol/L LAB CHEMISTRY METHOD 10/22/2024 8:54 PM [facility] Chloride 103 96 - 110 mmol/L LAB CHEMISTRY METHOD 10/22/2024 8:54 PM [facility] CO2 28 21 - 32 mmol/L LAB CHEMISTRY METHOD 10/22/2024 8:54 PM [facility] Anion Gap 7 3 - 11 LAB CHEMISTRY METHOD 10/22/2024 8:54 PM [facility] Glucose 92 70 - 100 mg/dL LAB CHEMISTRY METHOD 10/22/2024 8:54 PM EST [facility] BUN 11 5 - 25 mg/dL LAB CHEMISTRY METHOD 10/22/2024 8:54 PM [facility] Creatinine 0.57 0.50 - 1.10 mg/dL LAB CHEMISTRY METHOD 10/22/2024 8:54 PM EST [facility] eGFR 115 >=60 mL/min/1. 73m2 LAB CHEMISTRY METHOD 10/22/2024 8:54 PM EST [facility] Comment:Calculation based on the Chronic Kidney Disease Epidemiology Collaboration (CKD-EPI) equation refit without adjustment for race. BUN/Creatinine Ratio 19.3 LAB CHEMISTRY METHOD 10/22/2024 8:54 PM [facility] Calcium 8.9 8.5 - 10.5 mg/dL LAB CHEMISTRY METHOD 10/22/2024 8:54 PM EST [facility] Blood Venous blood specimen / Unknown Venipuncture / Unknown 10/22/2024 3:10 PM EST 10/22/2024 3:10 PM EST us Tonya Tan MD LAB BLOOD ORDERABLES Final Result [facility] [address] [place] [address], from Last 3 Months or Most Recently Relevant to Health Maintenance Insurance [facility] [employer] Care Teams Batch Room Technician Relationship Specialty Start Date End Date Tonya Tan MD [address] [place] [address] PCP - General 06/29/23
--- OUTSIDE RECORDS SUMMARY | 2025-07-10 15:22 | XMS_ITS | Encounter Summary ---
Author Organization [employer] Address [address] [place] [address] Care Team Providers Care Home Care Provider Name Role Phone Tonya Tan MD Primary Care Provider Reason for Visit * Reason Onset Date Comments VNA CALL 09/10/2024 Encounter Details Date Type Department Care Team (Late st Contact Info) Description 09/10/2024 Telephone Adult Medicine [facility] 444 [place] [phone] Tonya Tan MD 444 [place] [address] Social History Tobacco Use Types Packs/Day Years [...] to go to er for evaluation,. * Dennydemetris Bayron - 09/10/2024 1:11 PM EST [facility]NA CALL Which [facility] office is calling? [facility] Full name of caller: sree The caller [...] 08/06/2025 1:00 PM EDT Office Visit Urogynecology [address] [phone] Roxy Colon MD [address] [place] [address] 08/28/2025 4:00 PM EST Office Visit Adult Medicine [place] - [address] [phone] Carrie Badillo PA [address] [place] [address] 09/18/2025 9:00 AM EST Consult Vascular Surgery - [place] 300 [facility] 210 [place] [address] Negrita Boone PA 300 [facility] 210 [place] [address] 09/19/2025 9:40 AM EST Office Visit Gastroenterology - [place] [address] [place] [address] Merry Inman, [place] 175 [facility] 200 [place] [address] documented as of this encounter Visit Diagnoses Not on filedocumented in this encounter Care Teams Home Care Provider Relationship Specialty Start Date End Date Tonya Tan MD [address] [place] [address] PCP - General 06/29/23 documented as of this encounter
--- OUTSIDE RECORDS SUMMARY | 2025-07-10 15:22 | XMS_ITS | Encounter Summary ---
Author Organization [employer] Address [address] [place] [address] Care Team Providers Care Concrete Tester Name Role Phone Tonya Tan MD Primary Care Provider Reason for Visit * Reason Onset Date Comments Neck Pain 09/19/2024 Back Pain 09/19/2024 Abstract 09/19/2024 2 Encounter Details Date Type Department Care Team (Late st Contact Info) Description 09/19/2024 Nurse Triage Adult Medicine [address] [phone] Tonya Tan MD 4 [place] [address] Social History Tobacco Use Types Packs/Day Years [...] menstrual period? Protocols used: Neck Pain or Afyqyzkol-Z-DN * Mila Metcalf - 09/20/2024 1:53 PM EST Pt called back today stating she has not been given a call back yet. Even though there is a duplicate message. Pt is requesing an urgent call back from triage. At phone [phone] thank you * Josette Morales RN - 09/19/2024 1:17 PM EST Duplicate message * Mila Lazear - 09/19/2024 1:10 PM EST Patient call [...] traveled recently to another state outside of [place], [place], [place], [place], [place], [place], [place]? no o If yes, did you quarantine [...] of accident/Injury: No If yes, gather 3rd constitution party insurance information [employer] Party Information: not applicable PCP: Tonya Tan MD Payor: / No coverage found. documented in this encounter Plan of Treatment Upcoming Encounters Date Type Department Care Team (Late st Contact Info) Description 08/06/2025 1:00 PM EDT Office Visit Urogynecology [address] [phone] Roxy Colon MD [address] [place] [address] 205 [place] [address] 08/28/2025 4:00 PM EST Office Visit Adult Medicine [place] 444 [place], [place] [phone] Carrie Badillo PA 444 [place], [place] 09/18/2025 9:00 AM EST Consult Vascular Surgery - [place] 300 [facility] 210 [place] [address] Negrita Boone PA 300 [facility] 210 [place] [address] 09/19/2025 9:40 AM EST Office Visit Gastroenterology - [place] 175 [facility] 175 [facility] 200 [place] [address] Merry Inman, [place] 175 [facility] 200 [place] [address] documented as of this encounter Visit Diagnoses Not on filedocumented in this encounter Care Teams Concrete Tester Relationship Specialty Start Date End Date Tonya Tan MD 4 [place], [place] PCP - General 06/29/23 documented as of this encounter
== END 2025-07-10 14:50 | disposition home or self-care (01) ==
LOC: HO.HWS 13:43
PROVIDERS: PCP Internal Medicine; Visit Provider Obstetrics & Gynecology
DX: R87.615 Unsatisfactory cytologic smear of cervix (principal); R87.618 Other abnormal cytological findings on specimens from cervix uteri; Z32.02 Encounter for pregnancy test, result negative
CPT/HCPCS: 58100

== ENCOUNTER 2025-08-20 14:29 | Outpatient (REF) | payer OTHER, SELFPAY ==
--- NOTE | ~2025-08-20 | US_ITS ---
EXAMINATION: US PELVIS CLINICAL INFORMATION: Abnormal uterine bleeding. LMP 08/05/2025. COMPARISON: None available. TECHNIQUE: Ultrasound of the pelvis is performed using both transabdominal and transvaginal transducers along with Doppler. Transvaginal imaging is performed due to inadequate visualization transabdominally. FINDINGS: Uterus: The uterus is anteverted and measures 10.7 x 6.1 x 6.5 cm. The double wall endometrial thickness is 10 mm. No endometrial fluid or mass. The uterus is smooth in contour and has normal myometrial echogenicity. There are 2 subserosal/intramural fibroids measuring 2.8 x 2 x 1.4 cm in the posterior uterine body and 1.9 x 1.4 x 1.5 cm in the anterior uterine body. Small nabothian cyst in the cervix. Adnexa: The right ovary is not seen. Left ovary measures 3.4 x 2.7 x 2.9 cm. The left ovary seen transabdominally only. There is a 2.4 x 2.4 x 1.8 cm simple left ovarian cyst or dominant follicle. No fluid in the pelvis. US/US pelvic and transvaginal IMPRESSION: Small intramural/subserosal uterine fibroids largest measuring 2 x 2.8 cm. Normal appearing endometrium. Right ovary not seen. Normal left ovary. Electronically signed by: Mara Osman MD 08/20/2025 03:34 PM EST
== END 2025-08-20 14:30 | disposition home or self-care (01) ==
LOC: HO.US 14:29
PROVIDERS: PCP Internal Medicine; Visit Provider Obstetrics & Gynecology
DX: N93.9 Abnormal uterine and vaginal bleeding, unspecified (principal)
CPT/HCPCS: 76830; 76856

== ENCOUNTER → 2025-08-20 14:31 | Outpatient (BNV) | payer OTHER, SELFPAY | PROVIDERS: PCP Internal Medicine; Visit Provider Radiology Diagnostic Radiology | DX: N93.9 Abnormal uterine and vaginal bleeding, unspecified (principal); D25.9 Leiomyoma of uterus, unspecified | CPT/HCPCS: 76830; 76856 ==

== ENCOUNTER 2025-08-26 13:09 | Outpatient (AMB) | payer OTHER, SELFPAY ==
--- OUTSIDE RECORDS SUMMARY | 2024-07-22 07:16 | XMS_ITS | Encounter Summary ---
Author Organization [employer] Address [address] [place] [address] Care Team Providers Care Professional Services Specialist Name Role Phone Yeni Daniel MD Primary Care Provider [phone] Encounter Details Date Type Department Care Team (Late Contact Info) Description 07/22/2024 8:16 AM EDT Hospital Encounter TH HISTORIC ENCOUNTERS EASTERN CONVERSION ONLY Yeni Daniel MD [address] [place] [address] Gastro-esophageal reflux disease without esophagitis Social History Tobacco Use Types Packs/Day Years Used Date Smoking Tobacco: Every Day Cigarettes 0.3 28.4 Started: 1997 Smokeless Tobacco: Never Alcohol Use Standard Drinks/Week Comments No 0 (1 standard drink = 0.6 oz pur e alcohol) Comments No Sex and Gender Information Value Date Recorded Sex Assigned at Female 01/25/2025 1:09 PM EDT Legal Sex Female 7:33 PM EST Gender Identity Female 01/25/2025 1:09 PM EDT Sexual Orientation Straight 01/25/2025 1: 09 PM EDT documented as of this encounter Plan of Treatment Upcoming Encounters Date Type Department Care Team (Late Contact Info) Description 08/28/2025 4:00 PM EST Office Visit Adult Medicine [address] [phone] Carrie Badillo PA [address] [place] [phone] 09/18/2025 9:00 AM EST Consult Vascular Surgery - [place] [address] [place] [phone] Negrita Boone PA 230 [facility] [place] [phone] 09/19/2025 9:40 AM EST Office Visit Gastroenterology - [address] [facility] [address] [place] [phone] Merry Inman, [place] 299 [facility] 419 [place] [address] 09/22/2025 12:00 PM EST Ancillary Procedure [facility] - [facility] 101 300 [facility] [address] [place] [phone] documented as of this encounter Goals Goal Patient Goal Type Associated Problems Recent Progress Patient-Stated? Author PT LTGs General No Demarcus Lang, PT Note: Pt will increase lumbar AROM to WNL Pt willl report no lumbar pain with arom testing Pt will complete light cat scan tech x30 minutes without back pain Pt will be independent with all ADLs Pt will be independent with HEP PT STGs General No Demarcus Lang, PT Note: Pt will present with lumbar extension to 0 with static standing Pt will increase lumbar AROM flexion to 3 inches Pt will report no radicular pain or numbness of RLE Pt willl transfer supine to/from sit independent documented as of this encounter Procedures Procedure Name Priority Date/Time Associated Diagnosis Comments CR BARIUM SWALLOW Routine 07/22/2024 9:1 8 AM EDT Gastro-esophageal reflux disease without esophagitis documented in this encounter Results * CR BARIUM SWALLOW (07/22/2024 9:18 AM EDT) Anatomical Region Laterality Modality Radiographic Angie ging 07/22/2024 8:21 AM EDT Narrative 07/22/2024 9:18 AM EDT [facility] Diagnostic Imaging Department [address] [place] [address] Patient: SAMIRNABEEL /Age/Sex: 1980 - 44 - F Unit#: [id number] Location/Status: SPDIGEN/REG CLI Mnemonic/Ordering Site: [facility] Ordering Physician: YENI DANIEL MD CR Barium Swallow - 07/22/24 - Report Status:Signed FINDINGS: Double contrast esophagram performed. COMPARISON: 2 view chest x-ray March 02, 2014 HISTORY: Patient is a 44-year-old female with history of dysphagia, globus sensation. Lumber Checker radiographs: 1 view chest radiograph demonstrates cardiac and mediastinal borders within normal limits. Lungs are clear bilaterally. Costophrenic angles are sharp. 1 view lateral soft tissue neck demonstrates no prevertebral soft tissue masses. Airway is widely patent. There is calcification of the nuchal ligament. Osseous structures are otherwise unremarkable. Effervescent crystals were administered orally. Thick and thin barium were administered orally under fluoroscopic control. Pharyngoesophagram: Rapid sequence imaging of the hypopharynx during swallowing demonstrates prompt initiation of swallowing. There is normal soft palate elevation and normal epiglottic motion. There is no laryngeal penetration or eddi aspiration. There is no residual in the vallecula nor in the piriform sinuses. Thoracic esophagus: Normal distensibility, motility and mucosal pattern without evidence of ulceration, stricture or mass formation. Hiatal hernia: None Reflux: Unable to elicit 13mm Barium pill: Swallowed without difficulty. Prompt passage of pill from the esophagus into the stomach. DAP: 756.8 Gycm^2 Exam performed and dictated by: Nanda Gallardo PA-C Supervising physician: Jeanette Berger MD IMPRESSION: Normal double contrast esophagram exam. Dictating Physician: JEANETTE BERGER MD Electronically Signed by: JEANETTE BERGER MD Dic Date/Time: 07/22/2449 Sign date/Time: 07/22/24917 Procedure Note Jeanette Berger MD - 08/06/2024 [facility] Diagnostic Imaging Department [address] [place] [address] Patient: NABEEL HASTINGS /Age/Sex: 1980 - 44 - F Unit#: [id number] Location/Status: [facility]/REG CLI Mnemonic/Ordering Site: [facility] Ordering Physician: YENI DANIEL MD CR Barium Swallow - 07/22/24 - Report Status:Signed FINDINGS: Double contrast esophagram performed. COMPARISON: 2 view chest x-ray March 02, 2014 HISTORY: Patient is a 44-year-old female with history of dysphagia,globus sensation. Lumber Checker radiographs: 1 view chest radiograph demonstrates cardiac andmediastinal borders within normal limits. Lungs are clear bilaterally. Costophrenicangles are sharp. 1 view lateral soft tissue neck demonstrates no prevertebralsoft tissue masses. Airway is widely patent. There is calcification of thenuchal ligament. Osseous structures are otherwise unremarkable. Effervescent crystals were administered orally. Thick and thin bariumwere administered orally under fluoroscopic control. Pharyngoesophagram: Rapid sequence imaging of the hypopharynx duringswallowing demonstrates prompt initiation of swallowing. There is normal softpalate elevation and normal epiglottic motion. There is no laryngeal penetrationor eddi aspiration. There is no residual in the vallecula nor in thepiriform sinuses. Thoracic esophagus: Normal distensibility, motility and mucosal patternwithout evidence of ulceration, stricture or mass formation. Hiatal hernia: None Reflux: Unable to elicit 13mm Barium pill: Swallowed without difficulty. Prompt passage of pillfrom the esophagus into the stomach. DAP: 756.8 Gycm^2 Exam performed and dictated by: Nanda Gallardo PA-C Supervising physician: Jeanette Berger MD IMPRESSION: Normal double contrast esophagram exam. Dictating Physician: JEANETTE BERGER MD Electronically Signed by: JEANETTE BERGER MD Dic Date/Time: 07/22/2449 Sign date/Time: 07/22/24917 Yeni Daniel MD IMG XR PROCEDURES Final Res ult documented in this encounter Visit Diagnoses Diagnosis Gastro-esophageal reflux disease without esophagitis documented in this encounter Care Teams Professional Services Specialist Relationship Specialty Start Date End Date Yeni Daniel MD [address] [place] [address] [place] [address] PCP - General 06/29/23 documented as of this encounter
--- NOTE | 2025-08-26 13:22 | A.OFFVIS_ITS ---
Vital Signs 08/26/25 13:23 Height 5 ft 5 in Weight 193 lb BMI 32.1 BP 124/82 Intake Visit Reasons: ultrasound follow up/ EMB results Foreman/Project Manager Required: No Information Interpreted: non-clinical & clinical Accompanied by: Self / Same As Patient Allergies amoxicillin (AMOXICILLIN) Allergy (Unknown, Unverified 08/26/25 13:27) HIVE ibuprofen (From MOTRIN) Adverse Reaction (Unknown, Unverified 08/26/25 13:27) VOMITING tramadol (TRAMADOL) Adverse Reaction (Unknown, Unverified 08/26/25 13:27) NAUSEA & VOMITING & PALPITATIONS HPI Comments Details: The patient is presenting for follow-up to discuss the results of her abnormal uterine bleeding workup and options of treatment. The following workup was done.: H&H= 08/08.9 TSH, hCG, GC and chlamydia were negative. FSH/LH 10.6/0.1 Endometrial biopsy pathology showed : Endometrium, biopsy: Proliferative endometrium; no atypia or hyperplasia identified. Co testing was done was negative. Pelvic ultrasound showed the following: Uterus: The uterus is anteverted and measures 10.7 x 6.1 x 6.5 cm. The double wall endometrial thickness is 10 mm. No endometrial fluid or mass. The uterus is smooth in contour and has normal myometrial echogenicity. There are 2 subserosal/intramural fibroids measuring 2.8 x 2 x 1.4 cm in the posterior uterine body and 1.9 x 1.4 x 1.5 cm in the anterior uterine body. Small nabothian cyst in the cervix. Adnexa: The right ovary is not seen. Left ovary measures 3.4 x 2.7 x 2.9 cm. The left ovary seen transabdominally only. There is a 2.4 x 2.4 x 1.8 cm simple left ovarian cyst or dominant follicle. No fluid in the pelvis. Screening mammogram ordered not scheduled yet [facility] Medical History Chronic back pain Narcotic abuse Panic attack Hidradenitis suppurativa Anxiety and depression Asthma Obesity Osteoarthritis of lumbar spine Surgical History Hx of tubal ligation Family History Mother Hypertension Breast cancer in female Father HIV (human immunodeficiency virus infection) Maternal Grandfather Liver cancer Social History Household Members: Spouse Housing: Apartment Alcohol intake: never Patient Tobacco Use Status: Current everyday Tobacco user Tobacco use type: Cigarette Cigarette Packs Per Day: 0.25 Cigarettes Per Day: 8 Years Smoked: 30 Current occupational status: unemployed 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 Sexual orientation: Straight/Heterosexual Gender identity: Female Review of Systems Const All systems reviewed & are unremarkable except as noted in HPI and below Reports as per HPI and Reports no additional complaints GI Reports no additional complaints Reports no additional complaints Physical Exam Vital Signs: Last Vital Signs BP 124/82 08/26/25 13:23 BMI result Body Mass Index 32.1 Assessment & Plan Assessment & Plan (1) Abnormal uterine bleeding (AUB): Comment: Anemia Code(s): N93.9 - Abnormal uterine and vaginal bleeding, unspecified Category: Medical Plan: Instructions given the patient to schedule next screening Screening mammogram brittany you make sure it is negative prior to IUD insertion. Iron sulfate 325 mg p.o. t.i.d.. Discussed with the patient the results of the work up done and options of treatment including Lysteda, control pills, Mirena IUD, endometrial ablation and hysterectomy. All pros, cons, risks and benefits if each option was discussed with the patient and the patient decided to go ahead with Mirena IUD so a more detailed discussion about it was conducted including mechanism of action, risks (uterine perforation, infection, injury to bladder, bowel, displacement, and others) benefits (hypo menorrhea, amenorrhea, ...). GC/CT were taken and the patient was instructed to schedule Mirena IUD insertion on day 1-5 of next cycle . All questions answered, the patient verbalized understanding (2) Uterine myoma: Code(s): D25.9 - Leiomyoma of uterus, unspecified Category: Medical Plan: Discussed with the patient the findings on pelvic ultrasound & the risk of magno sarcoma; in addition reviewed with the patient that malignancy and pre malignancy cannot be ruled out without hysterectomy for pathological evaluation ; furthermore, explained to the patient the limitation of pelvic ultrasound and endometrial biopsy in the setting. Discussed with the patient the options of treatment including expectant management versus hysterectomy; the pros and cons, risks benefits of each approach were discussed with the patient including the fact that in cases of myosarcoma, surgical treatment can lead to early diagnosis and positively affects the prognosis; after further discussion, the patient decided to proceed with expectant management. Will repeat pelvic ultrasound periodically. Instructions given to patient to call in case any of the following occurs: pressure symptoms, abnormal uterine bleeding, pelvic pain; and to schedule a six-months pelvic ultrasound (order placed) and a follow-up appointment . All questions answered, the patient verbalized understanding and agreed with the plan . Orders: Orders US pelvic and transvaginal 6 Months D25.9 - Leiomyoma of uterus, unspecified Coding Level of Care Code Est Pt Level 3 (12729) Diagnoses Abnormal uterine bleeding (AUB) N93.9 Uterine myoma D25.9
[2025-08-26 13:23] VITALS: BP 124/82; BMI 32.1
--- OUTSIDE RECORDS SUMMARY | 2025-08-27 05:06 | XMS_ITS | Encounter Summary ---
Author Organization [employer] Address [address] [place] [address] Care Team Providers Care Vegetable Canner Name Role Phone Tonya Tan MD Primary Care Provider Reason for Visit * Reason Onset Date Comments Neck Pain 09/19/2024 Back Pain 09/19/2024 Abstract 09/19/2024 2 Encounter Details Date Type Department Care Team (Late st Contact Info) Description 09/19/2024 Nurse Triage Adult Medicine [address] [phone] Tonya Tan MD 4 [place] [address] Social History Tobacco Use Types Packs/Day Years [...] menstrual period? Protocols used: Neck Pain or [id number] * Mila Metcalf - 09/20/2024 1:53 PM EST Pt called back today stating she has not been given a call back yet. Even though there is a duplicate message. Pt is requesing an urgent call back from triage. At phone [phone] thank you * Josette Morales RN - 09/19/2024 1:17 PM EST Duplicate message * Mila Metcalf - 09/19/2024 1:10 PM EST Patient call [...] recently to another state outside of [place], [place], [place], [place], [place], [place], [place]? no o If yes, did you quarantine [...] of accident/Injury: No If yes, gather 3rd democrat insurance information [employer] Party Information: not applicable PCP: Tonya Tan MD Payor: / No coverage found. documented in this encounter Plan of Treatment Upcoming Encounters Date Type Department Care Team (Late st Contact Info) Description 08/28/2025 4:00 PM EST Office Visit Adult Medicine [address] [phone] Carrie Badillo PA [address] [place] [address] 09/18/2025 9:00 AM EST Consult Vascular Surgery - [address] [place] [address] Negrita Boone PA [address] [place] [phone] 09/19/2025 9:40 AM EST Office Visit Gastroenterology - 299 [facility] 299 [facility] 419 [place] [phone] Merry Inman, [place] 299 [facility] 419 [place] [address] 09/22/2025 12:00 PM EST Ancillary Procedure [facility] 101 300 [facility] 101 [place] [phone] documented as of this encounter Visit Diagnoses Not on filedocumented in this encounter Care Teams Vegetable Canner Relationship Specialty Start Date End Date Tonya Tan MD [address] [place] [address] PCP - General 06/29/23 documented as of this encounter
--- OUTSIDE RECORDS SUMMARY | 2025-08-27 05:06 | XMS_ITS | Clinical Summary ---
Author Organization [facility] Address [address] [place] [phone] Phone Care Team Providers Care Washing Machine Operator Name Role Phone Tonya Tan MD Primary [...] NEEDED 270 tablet 1 12/04/19 25 Active capsaicin (ZOSTRIX) 0.075 % creamIndication [...] of breath. 1080 mL 04/08/20 25 Active budesonide-form oteroL (Symbicort) 80-4.5 [...] hours. 30 each 5 04/08/20 25 Active ferrous sulfate 325 mg [...] if needed for allergies. 90 each 04/25/20 Active lactulose (CHRONULAC) solution Take 30 mL (20 g total) by mouth 2 (two) times a day. 5400 mL 06/06/20 25 2024 Active oxyBUTYnin XL (DITROPAN-XL) 5 mg 24 hr tablet TAKE 1 TABLET BY MOUTH DAILY. 90 tablet 08/08/20 25 Active Ventolin HFA 90 mcg/actuation inhalerIndicati ons:Mild intermittent asthma without complication INHALE 2 PUFFS BY MOUTH EVERY 4 (FOUR) HOURS IF NEEDED FOR WHEEZING OR SHORTNESS OF BREATH. 18 g 1 08/08/20 25 Active celecoxib (CeleBREX) 200 mg capsule TAKE 1 CAPSULE (200 MG TOTAL) BY MOUTH 2 (TWO) TIMES A DAY IF NEEDED FOR MODERATE PAIN. 180 capsule 1 08/08/20 25 Active ondansetron (ZOFRAN) 4 mg tablet TAKE 1 TABLET (4 MG TOTAL) BY MOUTH EVERY 8 (EIGHT) HOURS IF NEEDED FOR NAUSEA. 30 tablet 2 08/08/20 25 Active lisinopriL (PRINIVIL,ZESTR IL) 10 mg tablet TAKE 1 TABLET (10 MG TOTAL) BY MOUTH 1 (ONE) TIME EACH DAY. 90 tablet 08/08/20 25 Active oxyBUTYnin XL (DITROPAN-XL) 5 mg 24 hr tablet TAKE 1 TABLET BY MOUTH DAILY. 90 tablet 03/05/20 25 2024 Discontinued celecoxib (CeleBREX) 200 mg capsule Take 1 capsule (200 mg total) by mouth 2 (two) times a day if needed for moderate pain. 180 each 04/08/20 25 2024 Discontinued Ventolin HFA 90 mcg/actuation inhalerIndicati ons:Mild intermittent asthma without complication Inhale 2 puffs by mouth every 4 (four) hours if needed for wheezing or shortness of breath. 18 g 04/08/20 25 2024 Discontinued lisinopriL (PRINIVIL,ZESTR IL) 10 mg tablet Take 1 tablet (10 mg total) by mouth 1 (one) time each day. 90 tablet 1 04/08/20 25 2024 Discontinued ondansetron (ZOFRAN) 4 mg tablet Take 1 tablet (4 mg total) by mouth every 8 (eight) hours if needed for nausea. 30 tablet 1 04/08/20 25 2024 Discontinued Active Problems Problem Noted Date Diagnosed Date Gastroesophageal reflux disease 04/25/2025 Bilateral leg edema 04/25/2025 Use of cane as ambulatory aid 12/10/2024 Chronic back pain 07/12/2024 Narcotic abuse (CMS/[facility] V24, CMS/[facility] V28) 2023 Bilateral hip pain 03/31/2024 Primary hypertension 03/31/2024 Tremors of nervous system 03/31/2024 Osteoarthritis of lumbosacral spine 02/29/2024 Obesity 06/10/2020 Anxiety and depression 12/11/2019 Asthma 12/11/2019 Hidradenitis suppurativa 12/11/2019 Panic attacks 03/22/2017 Encounters Date Type Department Care Team Description 08/11/2025 Telephone Adult Medicine [address] [phone] Tonya Tan MD 08/04/2025 Telephone Adult Medicine [address] [phone] Tonya Tan MD 07/16/2025 Telephone Adult Medicine [address] [phone] Osmin Guadarrama LPN 07/11/2025 Telephone Adult Medicine [address] [phone] Constance Tellez MA 07/11/2025 Billing Patient Not Present Adult Medicine [address] [phone] Tonya Tan MD 06/23/2025 Telephone Adult Medicine [address] [phone] Tonya Tan MD 05/29/2025 Telephone Adult Medicine [address] [phone] Thierry, Osmin, LAURENCE from Last 3 Months Immunizations Immunization Administration [...] pain DX:Chronic rosana k pain Narcotic abuse ([facility]/HCC V24, CMS/HCC V28) DX:Narcotic abuse ([facility]) Panic attacks 03/22/2017 DX:Panic attacks Family [...] 4:00 PM EST Office Visit Adult Medicine [facility] [address] [place], [place] [phone] Carrie Badillo PA [address] [place], [place] 09/18/2025 9:00 AM EST Consult Vascular Surgery - [place] [address] [place] [address] Negrita Boone PA [address] [place] [address] 09/19/2025 9:40 AM EST Office Visit Gastroenterology - [address] [facility] [address] [place] [phone] Merry Inman NP 299 [facility] [address] [place] [address] 09/22/2025 12:00 PM EST Ancillary Procedure [facility] - [facility] [address] [facility] [address] [place] [phone] Health Maintenance Due Date Last Done Comments [...] ( season) 2025 Influenza Vaccine (#1) 2025 , [...] with arom testing 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 Computer-aided detection was employed with the TE2 AI 3-D. TISSUE DENSITY: The breasts are [...] Tomosynthesis. Computer-aided detection was employed with the TE2 AI 3-D. TISSUE DENSITY: The breasts are [...] Signed Date: 12/04/2024 17:59 ET Workstation ID: [id number] Transcribed By: Self Edit Transcribed Date: 12/04/2024 17:49 ET us Self Referral Sppl IMG BI PROCEDURES Final Resul t * Basic metabolic panel (10/22/2024 3:10 PM EST) Sodium 138 133 - 145 mmol/L LAB CHEMISTRY METHOD 10/22/2024 8:54 PM [facility] Potassium 3.6 3.5 - 5.5 mmol/L LAB CHEMISTRY METHOD 10/22/2024 8:54 PM [facility] Chloride 103 96 - 110 mmol/L LAB CHEMISTRY METHOD 10/22/2024 8:54 PM [facility] CO2 28 21 - 32 mmol/L LAB CHEMISTRY METHOD 10/22/2024 8:54 PM [facility] Anion Gap 7 3 - 11 LAB CHEMISTRY METHOD 10/22/2024 8:54 PM [facility] Glucose 92 70 - 100 mg/dL LAB CHEMISTRY METHOD 10/22/2024 8:54 PM [facility] BUN 11 5 - 25 mg/dL LAB CHEMISTRY METHOD 10/22/2024 8:54 PM [facility] Creatinine 0.57 0.50 - 1.10 mg/dL LAB CHEMISTRY METHOD 10/22/2024 8:54 PM [facility] eGFR 115 >=60 mL/min/1. 73m2 LAB CHEMISTRY METHOD 10/22/2024 8:54 PM [facility] Comment:Calculation based on the Chronic Kidney Disease Epidemiology Collaboration (CKD-EPI) equation refit without adjustment for race. BUN/Creatinine Ratio 19.3 LAB CHEMISTRY METHOD 10/22/2024 8:54 PM [facility] Calcium 8.9 8.5 - 10.5 mg/dL LAB CHEMISTRY METHOD 10/22/2024 8:54 PM [facility] Blood Venous blood specimen / Unknown Venipuncture / Unknown 10/22/2024 3:10 PM EST 10/22/2024 3:10 PM EST us Tonya Tan MD LAB BLOOD ORDERABLES Final Result [facility] [place] [facility] [address] [place] [address], from Last 3 Months or Most Recently Relevant to Health Maintenance Insurance [facility] Care Teams Washing Machine Operator Relationship Specialty Start Date End Date Tonya Tan MD [address] [place] [address] PCP - General 06/29/23
--- OUTSIDE RECORDS SUMMARY | 2025-08-27 05:06 | XMS_ITS | Encounter Summary ---
Author Organization [employer] Address [address] [place] [address] Care Team Providers Care Cnc Supervisor Name Role Phone Tonya Tan MD Primary Care Provider Reason for Visit * Reason Onset Date Comments VNA CALL 09/10/2024 Encounter Details Date Type Department Care Team (Late st Contact Info) Description 09/10/2024 Telephone Adult Medicine [facility] [address] [place] [phone] Tonya Tan MD [address] [place] [address] Social History Tobacco Use Types Packs/Day Years [...] VNA CALL Which VNA office is calling? [facility] Full name of caller: sree The [...] 4:00 PM EST Office Visit Adult Medicine [facility] [address] [place], [place] [phone] Carrie Badillo PA [address] [place], [place] 09/18/2025 9:00 AM EST Consult Vascular Surgery - [place] [address] [place] [phone] Negrita Boone PA [address] [place] [address] 09/19/2025 9:40 AM EST Office Visit Gastroenterology - [address] [facility] [address] [place] [phone] Merry Inman NP 299 [facility] [address] [place] [address] 09/22/2025 12:00 PM EST Ancillary Procedure [facility] - [facility] [address] [facility] [address] [place] [address] documented as of this encounter Visit Diagnoses Not on filedocumented in this encounter Care Teams Cnc Supervisor Relationship Specialty Start Date End Date Tonya Tan MD [address] [place] [address] PCP - General 06/29/23 documented as of this encounter
--- OUTSIDE RECORDS SUMMARY | 2025-08-27 05:06 | XMS_ITS | Encounter Summary ---
Author Organization [employer] Address [address] [place] [address] Care Team Providers Care Profile Mill Operator Tape Control Name Role Phone Tonya Tan MD Primary Care Provider Reason for Visit * Reason Onset Date Comments Rectal Pain 08/11/2025 VNA 08/11/2025 Encounter Details Date Type Department Care Team (Late st Contact Info) Description 08/11/2025 Telephone Adult Medicine [facility] [address] [place] [phone] Tonya Tan MD [address] [place] [address] Social History Tobacco Use Types Packs/Day Years [...] Progress Notes * Josette Morales RN - 08/22/2025 8:34 AM EST Pt has not responded to triage calls, encounter closed without pt contact * Yuliana White RN - 08/21/2025 10:46 AM EST Call to pt. Message left for pt to return call to the triage nurse, with an update on she is doing,? Did she go to the er after being triaged. * Josette Morales RN - 08/11/2025 2:28 PM EST Pt spoke with triage 08/06 c/o severe pain, unable to tolerate pain , unable to stand or work due to pain, pt was advised to go to the ed Unclear if pt did go to the ed Call to kristal ([email or web address]) Left message for her to call triage * Patricia Melton - 08/11/2025 12:50 PM EST VNA CALL Which A office is calling? [facility] Full name of caller: Kristal The caller is SANDSTONE INSPECTOR REPAIRER Is the caller at the patients home?: yes Reason for call: pain in rectum, bp not being controlled by current medication Does caller need an urgent call back? no Was CONTACT Telephone # obtained above?: no Fax #: n/a documented in this encounter Plan of Treatment Upcoming Encounters Date Type Department Care Team (Late st Contact Info) Description 08/28/2025 4:00 PM EST Office Visit Adult Medicine [address] [phone] Carrie Badillo PA [address] [place] [address] 09/18/2025 9:00 AM EST Consult Vascular Surgery - [place] [address] [place] [address] Negrita Boone PA [address] [place] [phone] 09/19/2025 9:40 AM EST Office Visit Gastroenterology - [address] [facility] [address] [place] [phone] Merry Inman, ALCON [address] [facility] [address] [place] [address] 09/22/2025 12:00 PM EST Ancillary Procedure [facility] - [address] [place] [address] documented as of this encounter Goals Goal Patient Goal Type Associated Problems Recent Progress Patient-Stated? 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
== END 2025-08-26 14:38 | disposition home or self-care (01) ==
LOC: HO.HWS 13:09
PROVIDERS: PCP Internal Medicine; Visit Provider Obstetrics & Gynecology
DX: N93.9 Abnormal uterine and vaginal bleeding, unspecified (principal); D25.9 Leiomyoma of uterus, unspecified
CPT/HCPCS: 99213

== ENCOUNTER → 2025-08-26 13:09 | Outpatient (BNVA) | payer OTHER, SELFPAY | PROVIDERS: PCP Internal Medicine; Visit Provider Obstetrics & Gynecology | DX: N93.9 Abnormal uterine and vaginal bleeding, unspecified (principal); D25.9 Leiomyoma of uterus, unspecified; Z98.51 Tubal ligation status | CPT/HCPCS: 99212 ==